=== PATIENT | female | born 1990 | race Caucasian/White ===

== ENCOUNTER → 2017-02-09 | Outpatient (CLI) | payer OTHER | LOC: LAB 17:00 | DX: N75.0 Cyst of Bartholin's gland (principal) ==

== ENCOUNTER → 2017-07-02 | Outpatient (CLI) | payer OTHER | LOC: LAB 11:08 | PROVIDERS: Obstetrics & Gynecology | DX: E03.9 Hypothyroidism, unspecified (principal) ==